=== PATIENT | male | born 1985 | race Caucasian/White ===

== ENCOUNTER 2017-12-30 15:18 | Emergency (ER) | payer OTHER ==
[~2017-12-30] VITALS: Ht 170.2 cm; Wt 61.7 kg
== END 2017-12-30 22:07 | disposition home or self-care (01) ==
LOC: ER 15:18
DX: R10.13 Epigastric pain (principal)

== ENCOUNTER 2024-06-11 23:38 | Emergency (ER) | payer OTHER ==
[~2024-06-11] VITALS: Ht 170.2 cm; Wt 68.0 kg
== END 2024-06-12 03:33 | disposition home or self-care (01) ==
LOC: ER 23:39
DX: K59.1 Functional diarrhea (principal)

== ENCOUNTER 2024-10-28 12:10 | Emergency (ER) | payer OTHER ==
[~2024-10-28] VITALS: Ht 170.2 cm; Wt 68.0 kg
[2024-10-28] MEDS ORDERED: DEXLANSOPRAZOLE60 MG PO (12:28)
[2024-10-28 14:50] LABS: BASO % 0.2 % (0.1-1.2); EOS # 0.02 (0.04-0.54); EOS % 0.3 % (0.7-7.0); LYMPH # 1.16 (1.18-3.74); LYMPH % 19.8 % (19.3-53.1); MEAN PLATELET VOLUME 9.50 fl (9.4-12.4); MONO # 0.55 (0.24-0.82); MONO % 9.4 % (4.7-12.5); NEUT # 4.12 (1.56-6.13); NEUT % 70.1 % (34.0-71.1); RED CELL DISTRIBUTION WIDTH 13.3 % (11.6-14.4)
[2024-10-28 15:26] LABS: COVID-19 AG NEGATIVE (NEGATIVE)
[2024-10-28] MEDS ORDERED: ACETAMINOPHEN500 M1 PO (16:09)
[2024-10-28] MEDS ORDERED: GILTUSS COUGH-118 M1 PO (16:09)
[2024-10-28] MEDS ORDERED: OSEL75CA PO (16:09)
[2024-10-28] MEDS ORDERED: OSELTAMIVIR PHOSPHATE 75 MG CAPSULE PO ONE (16:15)
[2024-10-28 16:20] VITALS: BP 110/70; O2SAT 97
== END 2024-10-28 16:21 | disposition home or self-care (01) ==
LOC: ER 12:10
PROVIDERS: Preventive Medicine Public Health & General Preventive Medicine
DX: J10.1 Influenza due to other identified influenza virus with other respiratory manifestations (principal); Z20.822 Contact with and (suspected) exposure to COVID-19